=== PATIENT | female | born 1995 | race Caucasian/White ===

== ENCOUNTER 2017-06-23 03:40 | Emergency (ER) | payer BC ==
[2017-06-23 03:51] VITALS: BP 132/82
[2017-06-23] MEDS ORDERED: methylPREDNISolone Sodium Succinate 125 MG/2 ML SDV IM ONE (03:56)
[2017-06-23] MEDS ORDERED: Albuterol 0.083% 2.5 MG/3 ML Neb Soln NEB ONE (03:56)
--- NOTE | 2017-06-23 04:01 | EDM.PDOC ---
ED HPI GENERAL MEDICAL PROBLEM - General Chief Complaint: Asthma Stated Complaint: Asthma Time Seen by Provider: 06/23/17 03:56 Source of Information: Reports: Patient, Family History Limitations: Reports: No Limitations - History of Present Illness INITIAL COMMENTS - FREE TEXT/NARRATIVE: Patient presents with complaints of an asthma attack. Has had off and on yesterday and into this morning starting at around 12 noon. Has used her albuterol inhaler with minimal improvements. Feels like she is short of breath. Has seasonal allergies and is stuffy this evening. Complains of non productive cough, nose drainage. Has no other complaints. Onset: Today, Gradual Onset Date: 06/22/17 Onset Time: 12:00 Duration: Intermittent, Recurring Location: Reports: Chest Severity: Moderate Improves with: Reports: Medication Associated Symptoms: Reports: Cough Treatments [employer]: Reports: Breathing Treatments (albuterol inhaler) Chest Pain Score (Numeric/FACES): 3 - Related Data Allergies Allergy/AdvReac Type Severity Reaction Status Date / Time No Known Allergies Allergy Verified 06/23/17 03:49 Home Meds: Home Meds . [No Known Home Meds] 06/23/17 [History] ED ROS GENERAL - Review of Systems Review Of Systems: See Below Constitutional: Reports: No Symptoms HEENT: Reports: No Symptoms Respiratory: Reports: Shortness of Breath, Wheezing Cardiovascular: Reports: Chest Pain Endocrine: Reports: No Symptoms GI/Abdominal: Reports: No Symptoms : Reports: No Symptoms Musculoskeletal: Reports: No Symptoms Skin: Reports: No Symptoms Neurological: Reports: No Symptoms Psychiatric: Reports: No Symptoms Hematologic/Lymphatic: Reports: No Symptoms Immunologic: Reports: No Symptoms ED EXAM, GENERAL - Physical Exam Exam: See Below Exam Limited By: No Limitations General Appearance: Alert, WD/WN, No Apparent Distress Eye Exam: Bilateral Eye: EOMI, PERRL Ears: Normal TMs Head: Atraumatic, Normocephalic Neck: Normal Inspection, Supple, Non-Tender, Full Range of Motion. No: Lymphadenopathy (L), Lymphadenopathy (R) Respiratory/Chest: No Respiratory Distress, Lungs Clear, Normal Breath Sounds, No Accessory Muscle Use, Chest Non-Tender Cardiovascular: Normal Peripheral Pulses, Regular Rate, Rhythm, No Edema, No Murmur Peripheral Pulses: 2+: Posterior Tibial (L), Posterior Tibial (R), Dorsalis Pedis (L), Dorsalis Pedis (R) GI/Abdominal: Normal Bowel Sounds, Soft, Non-Tender, No Organomegaly Back Exam: Other Extremities: Normal Inspection, Normal Range of Motion, Normal Capillary Refill Neurological: Alert, Oriented, CN II-XII Intact, Normal Cognition, Normal Gait, Normal Reflexes, No Motor/Sensory Deficits Psychiatric: Normal Affect, Normal Mood Skin Exam: Warm, Dry, Intact, Normal Color Lymphatic: No Adenopathy Course - Vital Signs Last Recorded V/S: Last Vital Signs Temp 36.4 C 06/23/17 03:50 Pulse 92 06/23/17 03:50 Resp 20 06/23/17 03:50 BP 132/82 06/23/17 03:50 Pulse Ox 94 L 06/23/17 03:50 Departure - Departure Time of Disposition: 04:11 Disposition: Home, Self-Care 01 Condition: Good Clinical Impression: Asthma with acute exacerbation in adult - Discharge Information Instructions: Asthma, Adult, [id number], Allergies, [id number] Forms: ED Department Discharge Additional Instructions: Continue to use your seasonal allergy medication on a daily basis as long as there is dust, crops, dirt, etc. in the air. Follow up with your primary doctor as needed for symptom management. You may want to try to use a saline rinse for your nose, sometimes called a "mc pot" this can help reduce inflammation of the mucosa in the nasal tract. This will help reduce drainage as well as keep the area hydrated. Use your inhaler as needed, if you are having to use this frequently, you may need to see your primary doctor for better asthma control. You should not have to be using the albuterol inhaler on a daily basis. If you are, this can be an indicator of poorly controlled asthma If you have any questions or concerns, please call us at any time. - Problem List & Annotations (1) Asthma with acute exacerbation in adult SNOMED Code(s): 894076183, 599255512 Code(s): J45.901 - UNSPECIFIED ASTHMA WITH (ACUTE) EXACERBATION Status: Acute Priority: Low - Problem List Review Problem List Initiated/Reviewed/Updated: Yes - Assessment/Plan Assessment:: asthma exacerbation Plan: Continue to use your seasonal allergy medication on a daily basis as long as there is dust, crops, dirt, etc. in the air. Follow up with your primary doctor as needed for symptom management. You may want to try to use a saline rinse for your nose, sometimes called a "mc pot" this can help reduce inflammation of the mucosa in the nasal tract. This will help reduce drainage as well as keep the area hydrated. Use your inhaler as needed, if you are having to use this frequently, you may need to see your primary doctor for better asthma control. You should not have to be using the albuterol inhaler on a daily basis. If you are, this can be an indicator of poorly controlled asthma If you have any questions or concerns, please call us at any time.
== END 2017-06-23 04:24 | disposition home or self-care (01) ==
LOC: VM.ED 03:40
DX: J45.901 Unspecified asthma with (acute) exacerbation (principal)
CPT/HCPCS: 94640; 96372; 99284; J2930; J7620